=== PATIENT | female | born 1990 | race Caucasian/White ===

== ENCOUNTER 2024-07-02 18:26 | Emergency (ER) | payer MEDICAID, SELFPAY ==
[2024-07-02 18:26] VITALS: BP 112/84; PULSE 85; RESP 14; TEMP 36.1; O2SAT 98; BMI 41.8
[2024-07-02 18:45] LABS: Bacteria 0 SEEN /hpf (None Seen); Mucous, Urine 0 SEEN /hpf (<or=2+); Red Blood Cells-Urine 0 SEEN /hpf (0-5)
[2024-07-02 18:50] LABS: Color, Urine Yellow (Yellow); Glucose, Dipstick Normal (Normal); Ketone-Dipstick Negative (Negative); Leukocyte Esterase-Dipstick 25 /ul (Negative); Nitrite-Dipstick Negative (Negative); Occult Blood-Urine Negative /ul (Negative); Protein-Dipstick 15 mg/dl (Negative); Urine Bilirubin Dipstick Negative (Negative); Urine Clarity Clear (Clear); Urine Urobilinogen 1 mg/dl (Normal)
[2024-07-02 19:01] LABS: Internal QC Validated? YES +Cl - CLEAR BKGD; Pregnancy, Urine Negative Negative; Squamous Epithelial Cells - UA 5-10 SEEN /hpf (5-10); White Blood Cells 0-5 SEEN /hpf (0-5)
--- NOTE | 2024-07-02 20:07 | RAD_ITS ---
PROCEDURE: HAND MIN 3 VIEWS REASON FOR EXAM: Pain. Closed sliding door on right hand. TECHNIQUE: 3 view(s) of the right hand COMPARISON: None. FINDINGS: No visible fracture. No suspicious bone lesion. Normal alignment. Soft tissues are unremarkable. RAD/Hand Min 3 Views IMPRESSION: No acute osseous abnormalities. Reading Location: [id number]
--- NOTE | 2024-07-02 20:08 | EDS_ITS ---
HPI History of Present Illness Chief Complaint: Cough Narrative Narrative: 34-year-old female who denies significant past medical history presents for cough, shortness of breath, and wheezing that she has had since Sunday, 5 days ago. She used to smoke vape but quit about a month ago. She states she was outside at the [employer] [facility] with her boyfriend. She states that she was outside in the cold and developed a cough with green sputum production. She denies any fevers or chills, no bodyaches. She also presents because of pain in her right thumb and towards her wrist. She is right-hand dominant. She states that she accidentally got it crushed in a sliding glass door when she was going inside to warm up. She denies other injuries but has pain when she moves her right thumb. PFSH [facility] Home Medications ?Medication ?Instructions ?Recorded ?Last Taken ?Type bupropion HCl 150 mg tablet,12 hr 150 mg PO DAILY 05/28 07/13 Unknown History sustained-release cabergoline 0.5 mg tablet 0.5 mg PO DAILY 07/02/24 Unk nown History Allergy/AdvReac Type Severity Reaction Status Date / Time latex AdvReac Rash Verified 07/02/24 18:31 Family History (Updated 07/02/24 @ 20:43 by Liz Horowitz) Mother Diabetes Hypertension Father Asthma COPD (chronic obstructive pulmonary disease) Cancer Surgical History (Updated 07/02/24 @ 20:43 by Liz Horowitz) H/O foot surgery H/O: Social History (Updated 07/02/24 @ 20:43 by Liz Horowitz) household members: significant other and family current occupational status: unemployed Smoking Status: Former smoker ROS ROS ED ROS Narrative Review of systems positive for cough with green sputum production. No fevers or chills. Review of systems also positive for right thumb pain radiating towards wrist. Positive shortness of breath. EXAM Physical Exam Narrative Exam Narrative: Afebrile. Vital signs noted. Nontoxic-appearing. Cardiovascular examination feels a regular rate and rhythm. Respiratory examination shows no distress no accessory muscle use but she has prolonged expiratory phase and occasional wheezing right greater than left. Examination of the right hand shows no crepitance of the skin, palpable radial pulse. Able to oppose thumb. Diffuse tenderness to palpation along right thumb. Const Vital Signs: 07/02/24 18:26 07/02/24 20:44 Temperature 97 F L Temperature Source Temporal Pulse Rate 85 Respiratory Rate 14 Respiratory Effort Normal Non-Labored Blood Pressure 112/84 H Blood Pressure Mean 93 Pulse Ox 98 Oxygen Delivery Method Room Air Room Air MDM MDM MDM Narrative Medical decision making narrative: Regarding her cough, differential diagnosis includes but not limited to bronchitis with bronchospasm versus pneumonia versus pneumothorax. I have low clinical suspicion for pneumothorax because history and physical does not support this. RN ordered UA and urine test as well as respiratory swab for COVID, influenza, and RSV. She is already 5 days out from the beginning of her symptoms so I do not feel an antiviral would be indicated should she be positive. In order to rule out pneumonia, x-rays will be obtained of the chest and 2 views and to rule out fracture versus contusion of the thumb x-ray of the right hand will also be obtained. She was given an albuterol MDI 2 puffs inhaled and the remainder dispensed to her to use 1 to 2 puffs every 4-6 hours as needed for wheezing and shortness of breath. I reviewed her laboratory work and her urine test is negative and her urinalysis is negative for infection so I do not feel antibiotics are indicated. I independently interpreted her chest x-ray and 2 views and see no evidence of pneumonia or pneumothorax. I reviewed the radiology report which confirms my independent interpretation. Additionally, I interpreted her right hand x-ray which shows no evidence of fracture. I reviewed the radiology report as well, which confirms my independent interpretation. At this point in time, she will be placed in a thumb spica splint for comfort and was told to exercise her finger for her thumb contusion/hand contusion. Additionally, she was given Tylenol 650 mg here for analgesia. I do not feel she requires admission. Her pulse ox is 98% on room air without evidence of hypoxia. Disposition is discharged home in stable condition. History & Record Review Discussion w/independent historian: Patient and Significant other Lab Data Attestation: I reviewed the patient's lab results. Labs: Laboratory Results - last 24 hr 07/02/24 18:39 Urine Color Yellow Urine Clarity Clear Urine pH 6.0 Ur Specific [place] 1.020 Urine Protein 15 H Urine Glucose (UA) Normal Urine Ketones Negative Urine Occult Blood Negative Urine Nitrite Negative Urine Bilirubin Negative Urine Urobilinogen 1 H Ur Leukocyte Esterase 25 H Urine RBC 0 SEEN Urine WBC 0-5 SEEN Ur Squamous Epith Cells 5-10 SEEN Urine Bacteria 0 SEEN Urine Mucus 0 SEEN Urine Test Negative Radiography Diagnostic Testing: Clinical Impression(s) from Imaging Studies Hand X-Ray 07/02/24 20:07 IMPRESSION: No acute osseous abnormalities. Reading Location: [facility] Chest X-Ray 07/02/24 20:50 IMPRESSION: NEGATIVE CHEST Reading Location: [facility] Discharge Plan Triage Chief Complaint: Cough ED Provider: Devan Cornejo Dx/Rx/DC Orders Clinical Impression: Influenza A, Contusion of finger of right hand Instructions: ED Hand Contusion, ED Influenza (Adult) Prescriptions: No Action bupropion HCl 150 MG tablet sustained-release 12 hr 150 mg PO DAILY cabergoline 0.5 mg tablet 0.5 mg PO DAILY Patient Comments: [NO ORIGINAL SIG] Primary Care Provider: Care Physician,No Primary Referrals: Marcelo Benton MD [Med Staff - Active Staff] - 1 Week if not improving Care Physician,No Primary [Primary Care Provider] - Activity Restrictions/Additional Instructions: Use the albuterol inhaler 1 to 2 puffs inhaled every 4-6 hours as needed for shortness of breath. Take Tylenol as needed for pain. Wear the splint over the next couple of days, you may remove it for bathing or sleeping. Print Language: Bulgarian Disposition Disposition: Home, Self Care
[2024-07-02] MEDS: Albuterol Sulfate 8 gm Inhaler (60 puffs) 2 PUFF INHALATION (20:39)
[2024-07-02 20:44] VITALS: O2SAT 98
--- NOTE | 2024-07-02 20:50 | RAD_ITS ---
PROCEDURE: CHEST PA AND LATERAL REASON FOR EXAM: Cough. TECHNIQUE: Frontal and lateral views of the chest. COMPARISON: None. FINDINGS: The heart size is normal. The mediastinal contour is unremarkable. The lungs are clear. The bones are unremarkable. RAD/Chest PA and Lateral IMPRESSION: NEGATIVE CHEST Reading Location: [id number]
[2024-07-02] MEDS: Acetaminophen 325 MG Tablet 650 MG PO (22:09)
== END 2024-07-02 22:13 | disposition home or self-care (01) ==
PROVIDERS: Emergency Provider Emergency Medicine; Visit Provider Emergency Medicine
DX: J10.1 Influenza due to other identified influenza virus with other respiratory manifestations (principal); S60.011A Contusion of right thumb without damage to nail, initial encounter; W23.0XXA Caught, crushed, jammed, or pinched between moving objects, initial encounter; Z87.891 Personal history of nicotine dependence
CPT/HCPCS: 71046; 73130; 81001; 81025; 87631; 99283